=== PATIENT | female | born 1995 | race Two or more races ===

== ENCOUNTER 2017-01-13 09:05 | Emergency (ER) | payer MEDICAID ==
[2017-01-13] MEDS ORDERED: KETOROLAC TROMETHAMINE 60 MG/2 ML SDV IM ONE (09:33)
[2017-01-13] MEDS ORDERED: ONDANSETRON 4 MG TAB.RAPDIS PO ONE (09:33)
--- NOTE | 2017-01-13 09:33 | ER Document Report ---
ED Medical Screen (RME) - General Mode of Arrival: Ambulatory Information source: Patient TRAVEL OUTSIDE OF THE [place] IN LAST 30 DAYS: No - HPI Patient complains to provider of: flank pain <SASCHA GRIMALDO - Last Filed: 01/13/17 10:17> <EVELINA MARQUES - Last Filed: 01/13/17 21:12> - General Chief Complaint: Flank Pain Stated Complaint: URINARY PAIN, LEFT SIDE FLANK PAIN Time Seen by Provider: 01/13/17 09:29 Notes: Patient presents to ED complaining of flank pain onset Tuesday. Patient reports the pain began to move this morning and so she decided to come in. Reports blood in urine last seen 2 days ago. Patient denies but is having sexual intercourse. Patient states she did drink alcohol this weekend. Patient is a nonsmoker but does use recreational marijuana. Patient is not on medications. LMC was November. (SASCHA GRIMALDO) - Related Data Allergies/Adverse Reactions: No Known Allergies Allergy (Verified 01/13/17 09:29) Past Medical History - General Information source: Patient - Social History Cigarette use (# per day): No Chew tobacco use (# tins/day): No Frequency of alcohol use: Occasional Drug Abuse: Marijuana Family history: Reviewed & Not Pertinent Pulmonary Medical History: Reports: Hx Asthma Neurological Medical History: Reports: Hx Migraine Past Surgical History: Reports: Hx Adenoidectomy, Hx Tonsillectomy - Immunizations Immunizations up to date: Yes Hx Diphtheria, Pertussis, Tetanus Vaccination: Yes <SASCHA GRIMALDO - Last Filed: 01/13/17 10:17> Review of Systems - Review of Systems Genitourinary: See HPI, Flank pain <SASCHA GRIMALDO - Last Filed: 01/13/17 10:17> Physical Exam - Respiratory Respiratory status: No respiratory distress Chest status: Nontender Breath sounds: Normal Chest palpation: Normal - Abdominal Tenderness: Tender - Diffuse tenderness to palpation with more tenderness on left side - Back Back: CVA tenderness - Left tender to percussion <SASCHA GRIMALDO - Last Filed: 01/13/17 10:17> Course - Laboratory Result Diagrams: 01/13/17 09:50 01/13/17 09:50 <SASCHA GRIMALDO - Last Filed: 01/13/17 10:17> - Laboratory Result Diagrams: 01/13/17 09:50 01/13/17 09:50 <EVELINA MARQUES - Last Filed: 01/13/17 21:12> - Vital Signs Vital signs: Temp Pulse Resp BP Pulse Ox 97.5 F 78 20 121/61 97 01/13/17 13:32 01/13/17 13:32 01/13/17 09:22 01/13/17 13:32 01/13/17 13:32 - Laboratory Laboratory results interpreted by me: 01/13/17 09:50 Urine Protein 30 H Urine Blood SMALL H Ur Leukocyte Esterase LARGE H Doctor's Discharge <SASCHA GRIMALDO - Last Filed: 01/13/17 10:17> <EVELINA MARQUES - Last Filed: 01/13/17 21:12> - Discharge Clinical Impression: Pyelonephritis Condition: Stable Disposition: HOME, SELF-CARE Instructions: Pyelonephritis ([facility]) Prescriptions: Cephalexin Monohydrate [Keflex 500 mg Capsule] 500 mg PO QID #28 capsule Phenazopyridine HCl [Pyridium 200 mg Tablet] 200 mg PO TID #7 tablet Forms: Return to Work Scribe Documentation - Scribe Written by Manoj:: manoj Trujillo, 01/13/17, 1018 acting as scribe for :: Luciana <SASCHA GRIMALDO - Last Filed: 01/13/17 10:17>
[2017-01-13 10:15] LABS: ABSOLUTE BASOPHILS # (AUTO) 0.1 10^3/uL (0.0-0.2); ABSOLUTE LYMPHOCYTES (AUTO) 2.8 10^3/uL (0.5-4.7); ABSOLUTE MONOCYTES (AUTO) 0.8 10^3/uL (0.1-1.4); ABSOLUTE NEUT (AUTO) 5.3 10^3/uL (1.7-8.2); BASOPHILS % (AUTO) 0.6 % (0-2); EOSINOPHILS % (AUTO) 0.2 % (0-6); HEMATOCRIT 41.8 % (36.0-47.0); HEMOGLOBIN 13.9 g/dL (12.0-15.5); HGB HCT DIFFERENCE -0.1; LYMPHOCYTES % (AUTO) 31.5 % (13-45); MEAN CORPUSCULAR HGB CONC 33.3 g/dL (32.0-36.0); MEAN CORPUSCULAR VOLUME 84 fl (80-97); RED BLOOD COUNT 4.98 10^6/uL (3.72-5.28); RED CELL DISTRIBUTION WIDTH 13.5 % (11.5-14.0); SEGMENTED NEUTROPHILS % (AUTO) 58.7 % (42-78)
[2017-01-13 10:25] LABS: ALANINE AMINOTRANSFERASE 19 U/L (5-35); ALBUMIN 3.9 g/dL (3.7-5.6); ALKALINE PHOSPHATASE 86 U/L (50-135); ANION GAP 14 (5-19); ASPARTATE AMINO TRANSFERASE 11 U/L (5-30); BILIRUBIN,DIRECT 0.3 mg/dL (0.0-0.4); BILIRUBIN,TOTAL 0.6 mg/dL (0.2-1.3); BLOOD UREA NITROGEN 8 mg/dL (7-20); CALCIUM 9.8 mg/dL (8.4-10.2); CARBON DIOXIDE 26 mmol/L (22-30); CHLORIDE 101 mmol/L (98-107); CREATININE RESULT 0.83 mg/dL (0.52-1.25); GLUCOSE 101 mg/dL (75-110); POTASSIUM 3.8 mmol/L (3.6-5.0); SODIUM 140.9 mmol/L (137-145); TOTAL PROTEIN 7.1 g/dL (6.3-8.2)
[2017-01-13 10:26] LABS: APPEARANCE,URINE CLOUDY; BILIRUBIN,URINE NEGATIVE (NEGATIVE); GLUCOSE, URINE NEGATIVE (NEGATIVE); KETONES,URINE NEGATIVE (NEGATIVE); LEUKOCYTE ESTERASE,URINE LARGE (NEGATIVE); NITRITE,URINE NEGATIVE (NEGATIVE); PROTEIN,URINE 30 mg/dL (NEGATIVE); URINE SPECIFIC GRAVITY 1.013; UROBILINOGEN,URINE NEGATIVE mg/dL (<2.0)
--- NOTE | 2017-01-13 13:20 | ER Document Report ---
ED GI/ - General Mode of Arrival: Ambulatory Information source: Patient TRAVEL OUTSIDE OF THE [place] IN LAST 30 DAYS: No - HPI Patient complains to provider of: Flank pain Associated symptoms: Other - See above <SASCHA GRIMALDO - Last Filed: 01/13/17 13:56> - HPI Severity at maximum: Moderate Severity in ED: Moderate <LUCIANAEVELINA - Last Filed: 01/13/17 21:12> - General Chief Complaint: Flank Pain Stated Complaint: LEFT SIDE FLANK PAIN Time Seen by Provider: 01/13/17 09:29 Notes: Patient is a 21 year old female who presents to ED complaining of flank pain onset 5 days ago. Patient reports the pain began to move this morning and so she decided to come in. Patient also complains of blood in urine last seen 2 days ago. Patient denies but is having sexual intercourse. Patient states she did drink alcohol this weekend. Patient is a nonsmoker but does use recreational marijuana. Patient is not on medications. [facility] was November. (SASCHA GRIMALDO) - Related Data Allergies/Adverse Reactions: No Known Allergies Allergy (Verified 01/13/17 09:29) Past Medical History - General Information source: Patient - Social History Smoking Status: Never Smoker Cigarette use (# per day): No Chew tobacco use (# tins/day): No Frequency of alcohol use: Occasional Drug Abuse: Marijuana Family History: Reviewed & Not Pertinent Patient has suicidal ideation: No Patient has homicidal ideation: No Pulmonary Medical History: Reports: Hx Asthma Neurological Medical History: Reports: Hx Migraine Past Surgical History: Reports: Hx Adenoidectomy, Hx Tonsillectomy - Immunizations Immunizations up to date: Yes Hx Diphtheria, Pertussis, Tetanus Vaccination: Yes <SASCHA GRIMALDO - Last Filed: 01/13/17 13:56> Review of Systems - Review of Systems Constitutional: No symptoms reported EENT: No symptoms reported Cardiovascular: No symptoms reported Respiratory: No symptoms reported Gastrointestinal: See HPI, Abdominal pain Genitourinary: See HPI, Flank pain, Hematuria Female Genitourinary: No symptoms reported Musculoskeletal: No symptoms reported Skin: No symptoms reported Hematologic/Lymphatic: No symptoms reported Neurological/Psychological: No symptoms reported -: Yes All other systems reviewed and negative <SASCHA GRIMALDO - Last Filed: 01/13/17 13:56> Physical Exam - General General appearance: Appears well, Alert In distress: None - HEENT Head: Normocephalic, Atraumatic - Respiratory Respiratory status: No respiratory distress Chest status: Nontender Breath sounds: Normal Chest palpation: Normal - Cardiovascular Rhythm: Regular - Abdominal Inspection: Normal Distension: No distension Bowel sounds: Normal Tenderness: Tender - Diffuse abdominal tenderness to palpation mostly on left side - Back Back: CVA tenderness - Left sided CVA tenderness to percussion - Extremities General upper extremity: Normal inspection General lower extremity: Normal inspection - Neurological Neuro grossly intact: Yes Cognition: Normal Orientation: AAOx4 Sumner Coma Scale Eye Opening: Spontaneous Rosa Coma Scale Verbal: Oriented [place] Coma Scale Motor: Obeys Commands Rosa Coma Scale Total: 15 Speech: Normal - Psychological Associated symptoms: Normal affect, Normal mood <SASCHA GRIMALDO - Last Filed: 01/13/17 13:56> Course - Laboratory Result Diagrams: 01/13/17 09:50 01/13/17 09:50 <SASCHA GRIMALDO - Last Filed: 01/13/17 13:56> - Laboratory Result Diagrams: 01/13/17 09:50 01/13/17 09:50 <EVELINA MARQUES - Last Filed: 01/13/17 21:12> - Re-evaluation Re-evalutation: 01/13/17 13:21 CC unremarkable, seems unremarkable, urinalysis shows small blood but large leukocyte esterase, no evidence of stone or obstructing stone, consistent with pyelonephritis, patient will be started on cephalexin and discharged home. ( EVELINA MARQUES) - Vital Signs Vital signs: Temp Pulse Resp BP Pulse Ox 97.5 F 78 20 121/61 97 01/13/17 13:32 01/13/17 13:32 01/13/17 09:22 01/13/17 13:32 01/13/17 13:32 - Laboratory Laboratory results interpreted by me: 01/13/17 09:50 Urine Protein 30 H Urine Blood SMALL H Ur Leukocyte Esterase LARGE H Discharge <SASCHA GRIMALDO - Last Filed: 01/13/17 13:56> <EVELINA MARQUES - Last Filed: 01/13/17 21:12> - Discharge Clinical Impression: Pyelonephritis Condition: Stable Disposition: HOME, SELF-CARE Instructions: Pyelonephritis ([facility]) Prescriptions: Cephalexin Monohydrate [Keflex 500 mg Capsule] 500 mg PO QID #28 capsule Phenazopyridine HCl [Pyridium 200 mg Tablet] 200 mg PO TID #7 tablet Forms: Return to Work Scribe Attestation: 01/13/17 21:12 I personally performed the services described in the documentation, reviewed and edited the documentation which was dictated to the scribe in my presence, and it accurately records my words and actions. (EVELINA MARQUES) Scribe Documentation - Scribe Written by Manoj:: manoj Trujillo, 01/13/17, 1400 acting as scribe for :: Luciana <SASCHA GRIMALDO - Last Filed: 01/13/17 13:56>
[2017-01-13 13:36] VITALS: BP 121/61
== END 2017-01-13 13:35 | disposition home or self-care (01) ==
LOC: ER 09:05
DX: N12 Tubulo-interstitial nephritis, not specified as acute or chronic (principal); R10.9 Unspecified abdominal pain; R31.9 Hematuria, unspecified
CPT/HCPCS: 99284; 96372; 36415; 87086; 85025; 81025; 87088; 80053; 81001; 87186; 76380; J1885; S0119